=== PATIENT | female | born 1955 | race Caucasian/White ===

== ENCOUNTER → 2020-02-25 09:38 | Outpatient (CLI) | payer MEDICARE, BC, SELFPAY | PROVIDERS: PCP Physician Assistant; Referring Provider Physician Assistant; Visit Provider Registered Nurse | DX: M85.88 Other specified disorders of bone density and structure, other site (principal); Z78.0 Asymptomatic menopausal state; Z82.62 Family history of osteoporosis | CPT/HCPCS: 77080 ==

== ENCOUNTER 2020-04-02 12:38 | Emergency (ER) | payer MEDICARE, BC, SELFPAY ==
[2020-04-02] VITALS (7 sets, daily range): BP systolic 122–148; BP diastolic 60–73; PULSE 67–81; RESP 16; TEMP 36.7; O2SAT 93–98; BMI 29.0
--- NOTE | 2020-04-02 12:54 | DI.RAD.S_ITS ---
PROCEDURE: XR KNEE LT 3V INDICATIONS: pain sp glf TECHNIQUE: 3 views of the knee were acquired. COMPARISON: None. FINDINGS: Bones: There is small linear calcification along the lateral facet of the patella noted only on the sunrise view. Osseous structures are otherwise intact. Joint spaces are maintained. Soft tissues: There is a likely joint effusion which is limited obliquity of the lateral view. No suspicious soft tissue calcifications. IMPRESSION: Concern for small nondisplaced fracture along the lateral facet of the patella. Dictated by: Mynor Bravo D.O. on 04/02/2020 at 12:27 Approved by: Mynor Bravo D.O. on 04/02/2020 at 12:31
--- NOTE | 2020-04-02 13:03 | ED.LOWEXIN ---
HPI - Extremity Injury (Lower) <MISSY Traore - Last Filed: 04/02/20 15:43> General Chief Complaint: Extremity Injury, Lower Stated Complaint: fall/pain in left leg behind knee Time Seen by Provider: 04/02/20 12:47 Source: patient Mode of arrival: Family Vehicle Limitations: no limitations History of Present Illness HPI Narrative: The patient is a 64-year-old female nonsmoker who denies pertinent medical history who presents with a chief complaint of left knee pain. She had a ground level fall yesterday, where she slipped on some mud and landed with her knee directly on to hard dirt with grass. She did not hit her head, denies any neck or back pain, states that her right knee took all of the impact. She was able to ambulate after, but has become increasingly painful and difficult to ambulate today. She took 100 mg of ibuprofen last night, but has not had anything for pain today. She denies any previous injuries to this knee, is not sure she felt a pop or a snap or a crack when she fell. She denies any other injuries. Given that the patient is 64 with a ground level fall suspected injury, modified trauma was consider, but not activated as this is an isolated knee injury. Related Data Home Medications Medication Instructions Recorded Confirmed CA/CU/VIT A/VIT C/VIT E/ZINC 1 tab PO QDAY #0 08/19/12 (ICAPS AREDS~) CALCIUM CARB/VIT D3/MINERALS 1 tab PO BID #0 08/19/12 (Caltrate-600 With Vit D Tab) CHOLECALCIFEROL (VITAMIN D3) 1,000 units PO QDAY #0 08/19/12 (VITAMIN D3) Fish Oil 1,000 mg PO QDAY #0 08/19/12 ascorbic acid (vitamin C) 500 mg PO QDAY #0 08/19/12 Previous Rx's Medication Instructions Recorded hydrocodone-acetaminophen [[place]] 1 tab PO Q4-6H PRN #10 tab 04/02/20 ketorolac 10 mg PO TID PRN #15 tab 04/02/20 Allergies Allergy/AdvReac Type Severity Reaction Status Date / Time No Known Drug Allergies Allergy Verified 04/02/20 12:53 Review of Systems <MISSY Traore - Last Filed: 04/02/20 15:43> Review of Systems Narrative: GENERAL: Denies chills, fatigue, malaise, fever, sweats. HEENT: Denies sinus pain, ear pain, sore throat, difficulty swallowing, dizziness. RESPIRATORY: Denies dyspnea, cough, wheezing, hemoptysis, sputum. CARDIOVASCULAR: Denies chest pain, palpitations, orthopnea, edema, GASTROINTESTINAL: Denies nausea, vomiting, abdominal pain, diarrhea, constipation, melena. : Denies dysuria, frequency, incontinence, hematuria, urinary retention. MUSCULOSKELETAL: See HPI SKIN: Denies rash, skin lesions, or other NEUROLOGIC: Denies weakness, headache, numbness, change in speech, confusion, seizures, incoordination. PSYCHIATRIC: No concerning psychosocial issues. 12 point review of systems is negative except for those stated above Patient History <MISSY Traore - Last Filed: 04/02/20 15:43> Social History Smoking Status: Never smoker Smoking Status: Never smoker Substance Use Type: does not use Exam <MISSY Traore - Last Filed: 04/02/20 15:43> Narrative Exam Narrative: GENERAL: This is a well-nourished, well-developed patient, in no acute distress HEAD: Atraumatic. Normocephalic. No temporal or scalp tenderness. EYES: Pupils equal round and reactive. Extraocular motions intact. No scleral icterus. No injection or drainage. ENT: Nose without bleeding, purulent drainage or septal hematoma. Wearing a mask. Airway patent. NECK: Trachea midline. No JVD or lymphadenopathy. Supple, nontender, no meningeal signs. CARDIOVASCULAR: Regular rate and rhythm RESPIRATORY: Clear to auscultation. Breath sounds equal bilaterally. No wheezes, rales, or rhonchi. No cough. No increased respiratory effort. No accessory muscle use. GASTROINTESTINAL: Abdomen soft, non-tender, nondistended. EXTREMITIES: General pain to palpation, right knee, able to lift right leg off stretcher, able the flex to approximately 45?. General pain to palpation noted. Positive pedal pulses left foot. BACK: Nontender without deformity or crepitance. No flank tenderness. NEURO: AOx3. SKIN: No rash or erythema on visible skin Initial Vital Signs Initial Vital Signs: Vital Signs Temperature 98.0 F 04/02/20 12:50 Pulse Rate 81 04/02/20 12:50 Respiratory Rate 16 04/02/20 12:50 Blood Pressure 148/66 H 04/02/20 12:50 Pulse Oximetry 98 04/02/20 12:50 <Renita Verdugo DO - Last Filed: 04/03/20 07:45> Initial Vital Signs Initial Vital Signs: Vital Signs Temperature 98.0 F 04/02/20 12:50 Pulse Rate 81 04/02/20 12:50 Respiratory Rate 16 04/02/20 12:50 Blood Pressure 148/66 H 04/02/20 12:50 Pulse Oximetry 98 04/02/20 12:50 Procedures <MISSY Traore - Last Filed: 04/02/20 15:43> Orthopedic Splinting/Casting Injury #1: Side: left Lower Extremity Injury Location: knee Lower Extremity Immobilizer: knee immobilizer Other Orthopedic Equipment: walker Post splinting neuro exam: intact Post splinting vascular exam: intact Placed by: Nursing Scores <MISSY Traore - Last Filed: 04/02/20 15:43> [place] CT Head Rule Age <16 years old: No Patient on blood thinners: No Seizure after injury: No Exclusion: Patient NOT Excluded, Proceed to next steps GCS < 15 at 2 hr post trauma: No Suspected open or depressed skull fracture: No Any sign of basilar skull fracture (hemotympanum, raccoon eyes, Bowles's sign, CSF fior-/rhinorrhea): No Two or more episodes of vomiting: No Age greater or equal to 65 years: Yes Retrograde amnesia to the event greater or equal to 30 min: No Dangerous Mechanism (pedestrian vs. mv, occupant ejected from mv, fall from >3 ft or > 5 stairs): No Recommendation: Consider CT. The [place] Head CT Rule cannot rule out need for Imaging. GCS Rola coma scale eye opening: Spontaneous Rola coma scale verbal response: Orientated Rola coma scale motor response: Obey commands Rola coma scale total score: 15 Nexus Score for C-Spine Focal Neurologic deficit present: No Midline spinal tenderness present: No Altered level of conciousness present: No Intoxication present: No Distracting Injury Present: No Nexus Criteria for C-spine: 0 Course <MISSY Traore - Last Filed: 04/02/20 15:43> Orders Ordered: Discontinued Medications Hydrocodone Bitart/Acetaminophen (Hydrocodone/Acet 5/325 Tablet) 1 tab PO NOW ONE Stop: 04/02/20 14:24 Last Admin: 04/02/20 14:30 Dose: 1 tab Documented by: JOSE Ketorolac Tromethamine (Ketorolac 60 Mg/2 Ml Vial) 30 mg IM NOW ONE Stop: 04/02/20 13:04 Last Admin: 04/02/20 13:12 Dose: 30 mg Documented by: JOSE Vital Signs Vital signs: Vital Signs - 8 hr 04/02/20 12:50 04/02/20 13:00 04/02/20 13:30 Temperature 98.0 F Pulse Rate 81 74 72 Respiratory Rate 16 Blood Pressure 148/66 H Pulse Oximetry 98 97 96 04/02/20 14:00 04/02/20 14:30 04/02/20 14:37 Temperature Pulse Rate 68 67 73 Respiratory Rate Blood Pressure 122/73 Pulse Oximetry 95 95 96 04/02/20 15:00 Temperature Pulse Rate 67 Respiratory Rate Blood Pressure 128/60 Pulse Oximetry 93 <Renita Verdugo DO - Last Filed: 04/03/20 07:45> Orders Ordered: Discontinued Medications Hydrocodone Bitart/Acetaminophen (Hydrocodone/Acet 5/325 Tablet) 1 tab PO NOW ONE Stop: 04/02/20 14:24 Last Admin: 04/02/20 14:30 Dose: 1 tab Documented by: JOSE Ketorolac Tromethamine (Ketorolac 60 Mg/2 Ml Vial) 30 mg IM NOW ONE Stop: 04/02/20 13:04 Last Admin: 04/02/20 13:12 Dose: 30 mg Documented by: JOSE Vital Signs Vital signs: Vital Signs - 8 hr 04/02/20 12:50 04/02/20 13:00 04/02/20 13:30 Temperature 98.0 F Pulse Rate 81 74 72 Respiratory Rate 16 Blood Pressure 148/66 H Pulse Oximetry 98 97 96 04/02/20 14:00 04/02/20 14:30 04/02/20 14:37 Temperature Pulse Rate 68 67 73 Respiratory Rate Blood Pressure 122/73 Pulse Oximetry 95 95 96 04/02/20 15:00 Temperature Pulse Rate 67 Respiratory Rate Blood Pressure 128/60 Pulse Oximetry 93 MDM - Extremity Injury (Lower) <Bess Oglesby CT TECH-BC - Last Filed: 04/02/20 15:43> Differential Diagnosis Differential diagnosis: Likely acute internal derangement of knee and other Imaging Data Extremity x-ray #1: Radiologist's Impression: Impression of left knee x-ray concern for small nondisplaced fracture along the lateral facet of patella MDM Narrative Medical decision making narrative: The patient is a 64-year-old female who presents with a chief complaint of left knee pain after ground level fall last night where she landed directly on her knee. She is neurovascularly intact throughout her stay in the ER. X-rays were taken and she was found to have a small patellar fracture. X-rays reviewed and case discussed with Dr Verdugo, she was placed in a knee immobilizer accordingly and was able to ambulate with a walker. Patient is able to elevate entire leg off of stretcher before knee immobilizer, decreasing suspicion of tendon injury. I discussed at length follow up with [facility] as well as her primary care provider, rest ice compression elevation, use of ketorolac and [place] for pain. Discussed that [place] can be sedating constipating etcetera. Patient has no questions or concerns upon discharge and states understanding of return precautions as well as follow-up care. Discharge Plan Departure Patient Disposition: Home Clinical Impression: Fall from ground level Fracture, patella Qualifiers: Encounter type: initial encounter Fracture type: closed Fracture morphology: unspecified fracture morphology Fracture alignment: nondisplaced Laterality: left Qualified Code(s): S82.002A - Unspecified fracture of left patella, initial encounter for closed fracture Instructions: How to Choose and Use a Walker, DI for Patella Fracture, How To Perform RICE (Rest, Ice, Compress, Elevate), DI for Knee Pain, How to Use a Knee Immobilizer, Ketorolac, Hydrocodone/Acetaminophen (By mouth) Activity Restrictions/Additional Instructions: Thank you for trusting us with your care today. As discussed, the x-ray of your knee illustrates a small nondisplaced fracture along the lateral aspect of your knee cap We have placed you in a knee immobilizer. As discussed, this x-ray does not rule out soft tissue such as ligamentous injury. I sent 2 pain medicine prescriptions to [facility]. I have given you a prescription of a narcotic for pain. Be aware that this can be constipating and sedating. I encouraged taking with a stool softener, pushing fluids and fiber. Do not take and drive, operate heavy machinery, etc. Do not combine it with any other sedating substances such as alcohol. The combination of narcotics and alcohol and/or other sedatives can be lethal. I have given you a prescription of ketorolac or Toradol. This is an NSAID. Do not combine it with other NSAIDs such as Aleve or ibuprofen. I suggest taking it with some food, as it can irritate your stomach. Please follow-up with primary care provider as well as [facility]. I have included the contact information below. Please call them on Saturday and see your seen in the emergency department, diagnosed with a patellar fracture and would like to follow-up with them. Please come back to the emergency department for any acute concerns such as decreased circulation to your foot. Please continue rest ice compression elevation. Prescriptions: New ketorolac 10 mg tablet 10 mg PO TID PRN (Reason: pain) Qty: 15 RF: 0 hydrocodone-acetaminophen [[place]] 5-325 mg tablet 1 tab PO Q4-6H PRN (Reason: pain) Qty: 10 RF: 0 No Action ascorbic acid (vitamin C) 500 MG tablet 500 mg PO QDAY Qty: 0 RF: 0 Fish Oil 1,000 mg PO QDAY Qty: 0 RF: 0 CA/CU/VIT A/VIT C/VIT E/ZINC (ICAPS AREDS~) 1 tab PO QDAY Qty: 0 RF: 0 CALCIUM CARB/VIT D3/MINERALS (Caltrate-600 With Vit D Tab) 1 tab PO BID Qty: 0 RF: 0 CHOLECALCIFEROL (VITAMIN D3) (VITAMIN D3) 1,000 units PO QDAY Qty: 0 RF: 0 Referrals: [facility] [Provider Group] Heidi Hunt PA-C [Primary Care Provider] - <Renita Verdugo DO - Last Filed: 04/03/20 07:45> Cosign ED Attending Chau Attestation: I was immediately available in the department for consultation. Documentation has been reviewed. I agree with assessment and plan.
[2020-04-02] MEDS: KETOROLAC 60 MG/2 ML VIAL 30 MG IM (13:12)
[2020-04-02] MEDS: HYDROCODONE/ACET 5/325 TABLET 1 TAB PO (14:30)
== END 2020-04-02 15:51 | disposition home or self-care (01) ==
PROVIDERS: Emergency Provider Nurse Practitioner Family; PCP Physician Assistant
DX: S82.002A Unspecified fracture of left patella, initial encounter for closed fracture (principal); W19.XXXA Unspecified fall, initial encounter
CPT/HCPCS: 73562; 96372; 99283; STOP; J1885

== ENCOUNTER → 2020-04-12 12:57 | Outpatient (CLI) | payer MEDICARE, BC, SELFPAY ==
--- NOTE | 2020-04-12 | DI.MRI.S_ITS ---
PROCEDURE: MR KNEE LT WO CON INDICATIONS: Unspecified fracture of left patella, initial enco TECHNIQUE: Noncontrast sagittal PD fast spin echo and T2 fast spin echo with fat saturation, sagittal 3-D FLASH with fat saturation; coronal T1 spin echo and PD fast spin echo with fat saturation, and axial PD fast spin echo with fat saturation through the knee. COMPARISON: [facility], CR, XR KNEE LT 3V, 04/02/2020, 12:59. FINDINGS: Image quality: Excellent. Menisci: Intrasubstance signal change in the body of the medial meniscus may extend to the inferior articular surface suggestive of subtle nondisplaced tear. Lateral meniscal tear involving the body and posterior horn. There is slight partial extrusion. Cruciate ligaments: Anterior cruciate ligament appears intact. Posterior cruciate ligament appears intact. Medial structures: The medial collateral ligament appears intact. Semimembranosus tendon appears intact. Visualized portions of the pes anserinus tendons appear normal. No abnormal bursal fluid. Lateral structures: The lateral collateral ligament intact. Biceps femoris tendon appears intact. Popliteus tendon grossly unremarkable. Iliotibial band appears intact. Anterior structures: Quadriceps tendon intact. Medial and lateral patellofemoral ligaments intact. Patellar tendon appears intact. There is prominent prepatellar and superficial infrapatellar edema/fluid. Hoffa's fat pad unremarkable. Bones and cartilage: No focal marrow contusion or discrete low signal fracture line. Within the medial compartment, no focal cartilage defect Within the lateral compartment, no focal cartilage defect. Within the patellofemoral compartment, mild partial thickness loss of the cartilage overlying the median patellar ridge and medial patellar facet. There is subchondral marrow edema/cystic change. Joint space: Moderate joint effusion. No Christensen's cyst. No specific evidence of intra-articular loose body. IMPRESSION: No definite patellar signal change to suggest fracture. If there is persistent clinical concern, continued serial radiographic surveillance could be performed. Lateral meniscal tear involving the body and posterior horn with slight partial extrusion Possible subtle nondisplaced undersurface tear involving the body of the medial meniscus although recommend clinical correlation. Patellofemoral chondromalacia Moderate joint effusion Prominent prepatellar and superficial infrapatellar fluid/edema. Dictated by: Fredi Davis M.D. on 04/12/2020 at 15:02 Approved by: Fredi Davis M.D. on 04/12/2020 at 15:09
== END ==
PROVIDERS: PCP Physician Assistant; Referring Provider Physician Assistant Surgical; Visit Provider Physician Assistant Surgical
DX: S82.002A Unspecified fracture of left patella, initial encounter for closed fracture (principal); S83.282A Other tear of lateral meniscus, current injury, left knee, initial encounter; M22.42 Chondromalacia patellae, left knee; X58.XXXA Exposure to other specified factors, initial encounter
CPT/HCPCS: 73721

== ENCOUNTER → 2022-05-02 11:56 | Outpatient (CLI) | payer MEDICARE, BC, SELFPAY ==
--- NOTE | 2022-05-02 11:59 | DI.RAD.S_ITS ---
PROCEDURE: XR LUMBAR SPINE 2-3V INDICATIONS: low back pain TECHNIQUE: 3 views of the lumbar spine were acquired. COMPARISON: None. FINDINGS: Bones: 5 [id number] vertebrae are present. There is normal bony alignment. Loss of disc height and degenerative endplate changes are noted throughout lumbar spine most notably at L4-5 and L5-S1 levels. No vertebral body compression fractures. No suspicious bony lesions. Soft tissues: Overlying bowel gas pattern is normal. No suspicious soft tissue calcifications. IMPRESSION: Degenerative disc disease throughout lumbar spine as above. No acute compression fracture or spondylolisthesis. Dictated by: Josafat Ye M.D. on 05/02/2022 at 13:30 Approved by: Josafat Ye M.D. on 05/02/2022 at 13:31
== END ==
PROVIDERS: PCP Internal Medicine; Referring Provider Internal Medicine; Visit Provider Internal Medicine
DX: M54.50 Low back pain, unspecified (principal); M51.36 Other intervertebral disc degeneration, lumbar region; M51.37 Other intervertebral disc degeneration, lumbosacral region; Z13.820 Encounter for screening for osteoporosis; M85.852 Other specified disorders of bone density and structure, left thigh; Z78.0 Asymptomatic menopausal state
CPT/HCPCS: 72100; 77080

== ENCOUNTER → 2024-07-08 09:43 | Outpatient (CLI) | payer MEDICARE, BC, SELFPAY ==
--- NOTE | 2024-07-08 09:46 | DI.RAD.S_ITS ---
PROCEDURE: XR DEXA AXIAL SKELETON INDICATIONS: OSTEOPENIA COMPARISON: [facility], , XR DEXA AXIAL SKELETON, 05/02/2022, 12:35. FINDINGS: Lumbar Spine: Bone mineral density 0.905 g/cm2, T score -1.3, osteopenia. Left Femoral Neck: Bone mineral density 0.662 g/cm2, T score -1.7, osteopenia. Left Hip: Bone mineral density 0.865 g/cm2, T score -0.6, normal. Fracture Risk Calculation (when applicable): 10-year fracture risk of a major osteoporotic fracture 9.9% percent and of a hip fracture 1.5% percent. (T score greater or equal to -1.0 to: NORMAL) (T score from -1.1 to -2.4: OSTEOPENIA) (T score less than or equal to -2.5: OSTEOPOROSIS) IMPRESSION: Osteopenia. Bone marrow density is decreased 9.4% in the interval since prior exam obtained July 03, 2021. Follow-up guidelines as follows: Osteoporosis: Consider a repeat DEXA and Vertebral Fracture Assessment (VFA) exam in 2 years or sooner if medically necessary, to reassess this patient's status. Osteopenia: Consider a repeat DEXA in 2-3 years to reassess this patient's status, or if there is a new clinical indication. Normal: Consider a repeat DEXA in 5 years or sooner, or if there is a new clinical indication. All treatment decisions require clinical judgment and consideration of individual patient factors, including patient preferences, comorbidities, previous drug use, risk factors not captured in the FRAX model (e.g., frailty, falls, vitamin D deficiency, increased bone turnover, interval significant decline in bone density ) and possible under- or over-estimation of fracture risk by FRAX. In addition, the NOF Guide recommends that FDA-approved medical therapies be considered in postmenopausal women and men age >= 50 years with a: * Hip or vertebral (clinical or morphometric) fracture * T-score of <=-2.5 at the spine or hip * Ten-year fracture probability by FRAX of >= 3% for hip fracture or >=20% for major osteoporotic fracture. Dictated by: Zulema Collins MD, PhD on 07/08/2024 at 12:57 Approved by: Zulema Collins MD, PhD on 07/08/2024 at 12:59
== END ==
LOC: RAD 09:45
PROVIDERS: PCP Registered Nurse; Referring Provider Registered Nurse; Visit Provider Registered Nurse
DX: M85.89 Other specified disorders of bone density and structure, multiple sites (principal)
CPT/HCPCS: 77080

== ENCOUNTER 2024-11-11 07:16 | Day surgery (SDC) | payer MEDICARE, BC, SELFPAY ==
[2024-11-11 08:09] VITALS: BP 128/78; PULSE 66; RESP 16; TEMP 36.2; O2SAT 99
[2024-11-11] MEDS: LACTATED RINGERS 1,000 ML 84 ML IV (08:17)
--- NOTE | 2024-11-11 08:55 | P.HP_ITS ---
History of Present Illness History of Present Illness Date Patient Seen: 11/11/24 Chief complaint: SDC Narrative: Ten year follow-up colonoscopy [facility] Social History Smoking Status: Never smoker Meds Home Medications and Allergies Home Medications ?Medication ?Instructions ?Recorded ?Confirmed ?Type CA/CU/VIT A/VIT C/VIT E/ZINC 1 tab PO QDAY ##0 3 11/11/24 History (ICAPS AREDS~) CALCIUM CARB/VIT D3/MINERALS 1 tab PO BID ##0 08/19/12 11/11/24 History (Caltrate-600 With Vit D Tab) CHOLECALCIFEROL (VITAMIN D3) 1,000 units PO QDAY ##0 0 08/19/12 11/11/24 History (VITAMIN D3) Allergies Allergy/AdvReac Type Severity Reaction Status Date / Time No Known Drug Allergies Allergy Verified 11/11/24 08:03 Exam Vital Signs (past 8 hours): - 11/11/24 08:09 Temperature 97.2 F L Pulse Rate 66 Respiratory Rate 16 Blood Pressure 128/78 Pulse Oximetry 99 Oxygen Delivery Method Room Air Oxygen Delivery Method Room Air Narrative Exam Narrative: Oropharynx free of lesions Chest clear to auscultation percussion Cardiac exam reveals no S3 or murmur Assessment & Plan Assessment & Plan narrative: 10 year follow-up colonoscopy. Risks, benefits, alternatives have been explained. Time-Based Coding :: [TOTAL MINUTES] spent with patient and on the chart (including review of chart, obtaining history, exam, reviewing outside data, placing orders, documenting exam and treatment plan, and counseling patient) on [DATE]. [employer] Document charge(s): No
--- NOTE | 2024-11-11 08:56 | PM.OP.COLON ---
Operative Date/Time/Diagnoses Date of procedure: 11/11/24 Time of procedure: 09:50 Pre-op diagnosis: See indication and findings Post-op diagnosis: same Procedure & Clinicians Study performed: Colonoscopy Same procedure(s) as scheduled: Yes Indications: 10 year follow-up screening Surgeon: Antonieta Collins Anesthesia Type: Other Procedure Notes Procedure in detail: After informed consent was obtained the patient was placed in left lateral decubitus position. The video colonoscope was inserted in the rectum slowly advanced cecum. Preparation was good. On slow withdrawal mucosa was carefully examined. The scope was removed. The patient tolerated procedure well. Blood loss none Complications none Sedation mac Findings 1. Normal colonoscopy to cecum Patient's next colonoscopy should be in 10 years
[2024-11-11 09:45] VITALS: BP 121/56; PULSE 70; RESP 14; TEMP 36.8; O2SAT 94
[2024-11-11 09:57] VITALS: BP 118/64; PULSE 70; RESP 15; TEMP 36.3; O2SAT 98
== END 2024-11-11 10:12 | disposition home or self-care (01) ==
PROVIDERS: PCP Registered Nurse; Referring Provider Internal Medicine Gastroenterology; Visit Provider Internal Medicine Gastroenterology
PROC: 0DJD8ZZ Inspection of Lower Intestinal Tract, Via Natural or Artificial Opening Endoscopic (ICD-10-PCS; CPT 45378; principal; 2024-11-11 09:00)
DX: Z12.11 Encounter for screening for malignant neoplasm of colon (principal)
CPT/HCPCS: G0121; J2704